=== PATIENT | female | born 1970 | race Caucasian/White ===

== ENCOUNTER → 2016-10-05 | Outpatient (REF) | payer BC | LOC: M LAB REF 16:43 | PROVIDERS: ATTEND Physician Assistant | DX: N39.0 Urinary tract infection, site not specified (principal) ==

== ENCOUNTER → 2017-02-17 | Outpatient (CLI) | payer BC ==
--- NOTE | 2017-02-18 00:36 | REP ---
Clinical: Rheumatoid arthritis. Technique: AP, lateral, bilateral oblique views of the right and left hand. Findings: There is no evidence for fracture or dislocation. The osseous structures, joint spaces, and surrounding soft tissues are relatively symmetric and age appropriate. Mild arthritic degenerative change includes subchondral sclerosis and minimal joint space narrowing primarily involving the interphalangeal joints (right greater than left). No significant periarticular soft tissue swelling or erosive changes are appreciated to suggest inflammatory arthritides by radiographic evaluation. Impression: Mild age-related arthritic changes. Signed by Kendall Marino MD 02/18/2017 12:26 A
== END ==
LOC: M RAD 15:14
PROVIDERS: ATTEND Nurse Practitioner Adult Health
DX: M06.341 Rheumatoid nodule, right hand (principal); M06.342 Rheumatoid nodule, left hand

== ENCOUNTER → 2017-02-22 | Outpatient (CLI) | payer BC ==
[2017-02-23 14:32] LABS: SJOGREN'S ANTI SS-A <0.2 AI (0.0-0.9); SJOGREN'S ANTI SS-B <0.2 AI (0.0-0.9)
== END ==
LOC: M LAB 10:09
PROVIDERS: ATTEND Nurse Practitioner Adult Health
DX: M35.00 Sjogren syndrome, unspecified (principal)

== ENCOUNTER → 2019-02-11 | Outpatient (REF) | payer BC | LOC: M LAB REF 08:52 | PROVIDERS: ATTEND Physician Assistant | DX: J02.9 Acute pharyngitis, unspecified (principal) ==

== ENCOUNTER → 2019-04-18 | Outpatient (REF) | payer BC ==
[2019-04-18 22:37] LABS: APPEARANCE, URINE MANUAL TURBID (CLEAR); COLOR, URINE MANUAL BROWN (YELLOW)
[2019-04-18 22:38] LABS: BILIRUBIN, URINE MANUAL NEGATIVE (NEGATIVE); GLUCOSE, URINE (UA) MANUAL NEGATIVE (NEGATIVE); KETONE, URINE MANUAL NEGATIVE (NEGATIVE); NITRITE, URINE MANUAL NEGATIVE (NEGATIVE); PROTEIN, URINE MANUAL 3+ mg/dL (NEGATIVE); SPECIFIC GRAVITY,URINE MANUAL 1.025 (1.002-1.035); UROBILINOGEN, URINE MANUAL NORMAL (NORMAL)
[2019-04-18 22:39] LABS: BLOOD URINE MANUAL POSITIVE (NEGATIVE); LEUKOCYTE ESTERASE, URINE MAN POSITIVE (NEGATIVE)
[2019-04-18 22:41] LABS: BACTERIA, URINE LARGE AMOUNT; RBC, URINE TNTC /hpf (0-3); SQUAMOUS EPITHELIAL CELL URINE LARGE AMOUNT /hpf (SMALL AMT); TRANSITIONAL EPI CELLS, URINE LARGE AMOUNT /hpf; WBC, URINE TNTC /hpf (0-3)
[2019-04-18 22:42] LABS: HYALINE CAST, URINE NONE SEEN /lpf (0-1)
== END ==
LOC: M LAB REF 10:40
PROVIDERS: ATTEND Physician Assistant Medical
DX: N39.0 Urinary tract infection, site not specified (principal)

== ENCOUNTER 2019-06-10 19:33 | Emergency (ER) | payer BC ==
[~2019-06-10] VITALS: Ht 167.6 cm; Wt 61.4 kg
[2019-06-10] MEDS ORDERED: BUSP15TA47 (19:37)
[2019-06-10] MEDS ORDERED: VALA1TAB64 (19:37)
[2019-06-10] MEDS ORDERED: BUPR150T5 (19:37)
[2019-06-10] MEDS ORDERED: TRAZ-257 (19:37)
[2019-06-10] MEDS ORDERED: HYDR-3363 (19:37)
[2019-06-10] MEDS ORDERED: MILI1TAB (19:37)
[2019-06-10] MEDS ORDERED: ADACEL/BOOSTRIX VACCINE (DIPHTH/PERTUSS/ACELL/TETANUS)0.5ML SYR (90715) IM ONE (20:30)
[2019-06-10] MEDS ORDERED: LIDOCAINE 1% MDV 20ML VIAL IM ONE (20:30)
[2019-06-10 20:57] VITALS: BP 115/65
== END 2019-06-10 20:59 | disposition home or self-care (01) ==
LOC: M ED 19:33
DX: S61.011A Laceration without foreign body of right thumb without damage to nail, initial encounter (principal); W25.XXXA Contact with sharp glass, initial encounter; Y93.E9 Activity, other interior property and clothing maintenance; Y92.009 Unspecified place in unspecified non-institutional (private) residence as the place of occurrence of the external cause; Y99.8 Other external cause status; F41.9 Anxiety disorder, unspecified; Z79.899 Other long term (current) drug therapy

== ENCOUNTER → 2024-02-29 | Outpatient (CLI) | payer BC ==
[~2024-02-29] MED LIST: BUPR-71; BUSP15TA47; HYDR-3363; MILI1TAB; TRAZ-257; VALA1TAB5
== END ==
LOC: M SOG 07:20
PROVIDERS: ATTEND Physician Assistant
DX: M79.642 Pain in left hand (principal)

== ENCOUNTER → 2024-03-17 | Outpatient (CLI) | payer BC | LOC: M PLARAD 07:41 | PROVIDERS: ATTEND Physician Assistant | DX: R22.32 Localized swelling, mass and lump, left upper limb (principal); M67.432 Ganglion, left wrist ==